=== PATIENT | male | born 1990 | race Caucasian/White ===

== ENCOUNTER 2017-09-26 13:05 | Day surgery (SDC) | payer BC ==
[2017-09-26] VITALS (8 sets, daily range): BP systolic 117–151; BP diastolic 50–83; PULSE 62–92; TEMP 97.9–98.2
[~2017-09-26] VITALS: Ht 193 cm; Wt 155.2 kg
[~2017-09-26 13:05] MED LIST: PRILOSEC 20MG20 MG PO
[2017-09-26] MEDS ORDERED: EFFEXOR XR75 MG/CAP PO (13:31)
[2017-09-26] MEDS ORDERED: PRINIVIL20 MG PO (13:32)
[2017-09-26] MEDS ORDERED: TOPROL XL100 MG PO (13:33)
== END 2017-09-26 19:41 | disposition home or self-care (01) ==
LOC: SDCO 13:05 → SURG 13:05 → SDCO 19:41
DX: N20.1 Calculus of ureter (principal); I10 Essential (primary) hypertension; F17.210 Nicotine dependence, cigarettes, uncomplicated; Z87.442 Personal history of urinary calculi; Z84.1 Family history of disorders of kidney and ureter; Z80.3 Family history of malignant neoplasm of breast; Z82.49 Family history of ischemic heart disease and other diseases of the circulatory system
CPT/HCPCS: OP; C1769; C2617; J0690; J1100; J1885; J2405; J2704; J2765; J3010; J7120; Q9967